=== PATIENT | male | born 1965 | race Two or more races ===

== ENCOUNTER 2018-11-09 14:47 | Emergency (ER) | payer OTHER ==
[~2018-11-09] VITALS: Ht 167.6 cm; Wt 69.4 kg
[2018-11-09] MEDS ORDERED: traMADol HCL 50 MG TAB PO ONE (16:15)
[2018-11-09 16:55] VITALS: BP 114/68
== END 2018-11-09 17:02 | disposition home or self-care (01) ==
LOC: ER 14:47 → EEVIPCON 14:47 → ER 17:01
DX: S40.011A Contusion of right shoulder, initial encounter (principal); W18.39XA Other fall on same level, initial encounter; Y93.66 Activity, soccer; Y99.8 Other external cause status; Y92.39 Other specified sports and athletic area as the place of occurrence of the external cause
CPT/HCPCS: 73030